=== PATIENT | male | born 2005 | race Two or more races ===

== ENCOUNTER 2024-03-21 13:58 | Emergency (ER) | payer MEDICAID, OTHER ==
[~2024-03-21] VITALS: Ht 177.8 cm; Wt 95.4 kg
[2024-03-21 15:21] VITALS: BP 138/87; PULSE 85; RESP 18; TEMP 97.1; O2SAT 100
[2024-03-21] MEDS: SODIUM CHLORIDE 0.9% 1,000 ML IV ONE ×2 (15:25→16:42)
[2024-03-21] MEDS: KETOROLAC TROMETH 30 MG/ML 1ML VIAL IV ONE (15:28)
[2024-03-21] MEDS: ONDANSETRON HCL 4 MG/2 ML VIAL IV ONE (15:28)
[2024-03-21 15:32] LABS: Urine Bacteria None Seen /hpf (None Seen)
[2024-03-21] MEDS: FAMOTIDINE (10MG/ML) 2ML VL IV ONE (15:34)
[2024-03-21 15:50] LABS: Basophils # (auto) 0 10 ^3/uL (0-0.2); Basophils % (auto) 0.4 % (0.0-2.0); Eosinophils # (auto) 0 10 ^3/uL (0-0.8); Hematocrit 47.8 % (41.0-53.0); Hemoglobin 15.5 g/dL (13.5-17.5); Lymphocytes # (auto) 0.8 10 ^3/uL (0.4-5.4); Lymphocytes % (auto) 7.7 % (10.0-50.0); Mean Corpuscular Hemoglobin 28.7 pg (28.0-32.0); Mean Corpuscular Hgb Conc. 32.4 g/dL (32.0-36.0); Mean Corpuscular Volume 88.5 fL (80.0-100.0); Monocytes # (auto) 0.3 10 ^3/uL (0-1.3); Monocytes % (auto) 2.8 % (0.0-12.0); Neutrophils # (auto) 9.8 10 ^3/uL (1.6-8.6); Neutrophils % (auto) 89.1 % (37.0-80.0); Nucleated Red Blood Cells % 0.1 %; Red Blood Cells 5.41 10^6/uL (4.5-5.90); Red Cell Distribution Width 15.1 % (11.8-14.3)
[2024-03-21 15:51] LABS: Urine Blood Negative /uL (Negative); Urine Clarity Clear (Clear); Urine Color Yellow (Yellow); Urine Mucus FEW (None Seen); Urine Protein, UAD TRACE (Negative); Urine Specific Gravity 1.026 (1.001-1.035); Urine Urobilinogen Normal (Negative); Urine WBC 1 /hpf (0 - 3); Urine pH 6.5 (5.0-9.0)
[2024-03-21 15:58] LABS: Amphetamine Screen, Urine Neg (NEGATIVE)
[2024-03-21 15:59] LABS: Barbiturate Scree,Urine Neg (NEGATIVE); Benzodiazephine Screen, Urine Pos (NEGATIVE); Cannabinoid Screen, Urine Pos (NEGATIVE); Cocaine Screen, Urine Neg (NEGATIVE); Opiate Scree,Urine Neg (NEGATIVE); Phencyclidine Screen, Urine Neg (NEGATIVE)
[2024-03-21] MEDS: diphenhdrAMINE HCL 50 MG/1 ML VL IV ONE (16:26)
[2024-03-21] MEDS: METOCLOPRAMIDE HCL 5MG/ml INJ 2ml VIAL IV ONE (16:26)
[2024-03-21 16:54] LABS: Alanine Aminotransferase 103 U/L (7-40); Albumin 5.3 g/dL (3.2-4.8); Alkaline Phosphatase 96 U/L (46-116); Anion Gap 15 (5-15); Aspartate Aminotransferase 46 U/L (13-40); BUN/Creatinine Ratio 14.5 (10.0-20.0); Bilirubin, Total 0.5 mg/dL (0.2-1.0); Blood Urea Nitrogen 11 mg/dL (9-23); Calcium 10.6 mg/dL (8.5-10.1); Carbon Dioxide 15 mmol/L (20-30); Chloride 110 mmol/L (98-107); Glucose 166 mg/dL (74-106); Potassium 4.7 mmol/L (3.5-5.1); Sodium 140 mmol/L (136-145)
[2024-03-21] MEDS ORDERED: LOPE7.5C PO (17:31)
[2024-03-21] MEDS ORDERED: DICY10CA PO (17:31)
[2024-03-21] MEDS ORDERED: ZOFR4T PO (17:31)
== END 2024-03-21 17:41 | disposition home or self-care (01) ==
LOC: ER 13:58
DX: K52.9 Noninfective gastroenteritis and colitis, unspecified (principal); E86.0 Dehydration; F19.10 Other psychoactive substance abuse, uncomplicated; F41.9 Anxiety disorder, unspecified; Z79.899 Other long term (current) drug therapy
CPT/HCPCS: 36415; 74176; 80053; 80307; 81001; 85025; 96361; 96374; 96375; 99285; J1200; J1885; J2405; J2765; J3490; J7030